=== PATIENT | male | born 1975 ===

== ENCOUNTER 2017-12-28 23:54 | Emergency (ER) | payer SELFPAY ==
[2017-12-29 00:10] VITALS: BP 139/91; PULSE 119; RESP 20; TEMP 98.7; O2SAT 100
== END 2017-12-29 00:34 | disposition left against medical advice (07) ==
LOC: C.ER 23:54
DX: Z02.89 Encounter for other administrative examinations (principal); F19.10 Other psychoactive substance abuse, uncomplicated
CPT/HCPCS: 82948; LWBS0